=== PATIENT | female | born 1955 | race Caucasian/White ===

== ENCOUNTER 2021-05-28 17:42 | Inpatient (IN) ==
[2021-05-28 19:24] LABS: Hematocrit 36.5 VOL% (35.7-47.0); Hemoglobin 11.8 GM/DL (12.0-16.0); Immature Granulocytes % 0.4 %; Immature Granulocytes Absolute 0.04 #; Lymphocytes # 1.4 10*3/uL (1.4-4.0); Lymphocytes % 15.5 % (21.3-54.2); Mean Corpuscular HGB Conc 32.3 GM/DL (32-36); Mean Corpuscular Volume 84.5 FL (87-102); Monocytes % 7.2 % (1.7-12.7); Neutrophils % 76.9 % (38.7-73.9); Platelet Count 247 T/CUMM (130-400); Red Blood Count 4.32 MC/CUMM (3.8-5.5); Red Cell Distribution Width 14.5 % (9.3-17.3); White Blood Count 9.1 T/CUMM (4-12)
[2021-05-28 19:25] LABS: Albumin 3.5 G/DL (3.4-5.0); Bilirubin,Total 0.5 MG/DL (0.20-1.00); Calcium 8.5 MG/DL (8.5-10.1); Osmolality,Calculated 280.4 MOS/KG (273-304); Potassium 5.1 MMOL/L (3.5-5.1); Total Protein 7.1 G/DL (6.4-8.2)
[2021-05-28 19:29] LABS: Bacteria,Urine Occasional /HPF (Few); Hyaline Casts,Urine 1 /LPF (0-3); Mucus,Urine Occasional /LPF (Occasional); Squamous Epithelial Cell,Urine Occasional /HPF (0-10); Transitional Epi Cells,Urine Occasional /HPF (<1)
[2021-05-28 19:30] LABS: Bilirubin,Urine Negative (Negative); Blood, Urine Negative (Negative); Glucose,Urine (UA) 100 mg/dL (Negative); Ketones,Urine Negative (Negative); Nitrite,Urine Negative (Negative); Protein,Urine Negative (Negative); Urine Appearance Clear (Clear); Urine Color Light Yellow (Yellow); Urine Specific Gravity <= 1.005 (1.001-1.035); Urine Urobilinogen 0.2 eU/dL (<2.0); Urine pH 5.5 (4.5-8.0)
[2021-05-28] MEDS ORDERED: SODIUM CHLORIDE 0.9% 1,000 ML IV STA (19:53)
[2021-05-28] MEDS ORDERED: ONDANSETRON 4 MG/2 ML VIAL IV STA (21:39)
[2021-05-28] MEDS ORDERED: MORPHINE 2 MG/1 ML SYRINGE IV STA (21:39)
[2021-05-28] MEDS ORDERED: MAGNESIUM SULF RIDER 4 GM/100 ML PREMIX IV PRN (22:29)
[2021-05-28] MEDS ORDERED: MAGNESIUM SULF RIDER 2 GM/50 ML PREMIX IV PRN (22:29)
[2021-05-28] MEDS ORDERED: GLUCAGON 1 MG VIAL IM PRN (22:29)
[2021-05-28] MEDS ORDERED: DEXTROSE 10% 250 ML BAG IV PRN (22:46)
[2021-05-28] MEDS ORDERED: ACETAMINOPHEN 500 MG TABLET PO PRN (23:25)
[2021-05-29] MEDS: ENOXAPARIN 40 MG/0.4 ML SYRINGE SUBCUT SCH ×2 (00:20→21:46)
[2021-05-29 00:24] LABS: Barbiturates Screen,Urine Negative (Negative); Benzodiazepines Screen,Urine Negative (Negative); Cannabinoid Screen,Urine Negative (Negative); Opiate Screen,Urine Negative (Negative); Phencyclidine Screen,Urine Negative (Negative)
[2021-05-29] MEDS: SODIUM CHLORIDE 0.9% 1,000 ML IV SCH ×3 (00:30→21:44)
[2021-05-29] MEDS ORDERED: LEVOFLOXACIN INJ 500 MG/100 ML PREMIX IV ONE (01:00)
[2021-05-29 05:11] LABS: Basophils % 0.1 % (0.0-0.8); Eosinophils % 0.1 % (0.00-10.9); Hematocrit 33.7 VOL% (35.7-47.0); Hemoglobin 10.8 GM/DL (12.0-16.0); Immature Granulocytes % 0.3 %; Immature Granulocytes Absolute 0.02 #; Lymphocytes # 2.5 10*3/uL (1.4-4.0); Lymphocytes % 35.8 % (21.3-54.2); Mean Corpuscular Volume 84.7 FL (87-102); Mean Platelet Volume 10.4 FL (9.6-12.0); Monocytes % 10.1 % (1.7-12.7); Neutrophils % 53.6 % (38.7-73.9); Platelet Count 241 T/CUMM (130-400); Red Blood Count 3.98 MC/CUMM (3.8-5.5); Red Cell Distribution Width 14.5 % (9.3-17.3)
[2021-05-29 05:39] LABS: Calcium 8.4 MG/DL (8.5-10.1); Osmolality,Calculated 283.7 MOS/KG (273-304); Potassium 4.5 MMOL/L (3.5-5.1); Thyroid Stimulating Hormone 1.25 uIU/ml (0.358-3.74)
[2021-05-29] MEDS: INSULIN REGULAR 100 UNIT/ML SUBCUT SCH ×4 (07:57→22:10)
[2021-05-29] MEDS: PANTOPRAZOLE 40 MG TABLET PO SCH (09:50)
[2021-05-29] MEDS: DOCUSATE SODIUM 100 MG CAPSULE PO SCH ×2 (09:50→21:44)
[2021-05-29] MEDS: oxyCODONE/ACETAMINOPHEN 5-325 MG TABLET PO PRN ×2 (13:40→21:45)
[2021-05-29] MEDS ORDERED: LEVOFLOXACIN INJ 250 MG/50 ML PREMIX IV ONE (21:00)
[2021-05-29] MEDS: METOPROLOL TARTRATE 50 MG TABLET PO SCH (21:44)
[2021-05-29] MEDS: PREGABALIN 75 MG CAPSULE PO SCH (21:45)
[2021-05-29] MEDS: BACLOFEN 10 MG TABLET PO SCH (21:45)
[2021-05-30] MEDS: SODIUM CHLORIDE 0.9% 1,000 ML IV SCH ×6 (02:36→23:29)
[2021-05-30] MEDS: oxyCODONE/ACETAMINOPHEN 5-325 MG TABLET PO PRN ×4 (02:37→21:50)
[2021-05-30 06:08] LABS: Basophils % 0.2 % (0.0-0.8); Eosinophils % 0.2 % (0.00-10.9); Hemoglobin 11.3 GM/DL (12.0-16.0); Immature Granulocytes % 1.1 %; Immature Granulocytes Absolute 0.06 #; Lymphocytes # 1.9 10*3/uL (1.4-4.0); Lymphocytes % 32.8 % (21.3-54.2); Mean Corpuscular HGB Conc 31.4 GM/DL (32-36); Mean Corpuscular Volume 85.3 FL (87-102); Mean Platelet Volume 10.3 FL (9.6-12.0); Monocytes % 9.6 % (1.7-12.7); Neutrophils % 56.1 % (38.7-73.9); Platelet Count 227 T/CUMM (130-400); Red Blood Count 4.22 MC/CUMM (3.8-5.5); Red Cell Distribution Width 14.5 % (9.3-17.3); White Blood Count 5.7 T/CUMM (4-12)
[2021-05-30 06:30] LABS: Calcium 8.7 MG/DL (8.5-10.1); Osmolality,Calculated 276.8 MOS/KG (273-304); Potassium 4.2 MMOL/L (3.5-5.1)
[2021-05-30] MEDS: INSULIN REGULAR 100 UNIT/ML SUBCUT SCH ×4 (07:40→20:27)
[2021-05-30] MEDS ORDERED: PANTOPRAZOLE 40 MG TABLET PO SCH (09:00)
[2021-05-30] MEDS: ESCITALOPRAM 10 MG TABLET PO SCH (09:29)
[2021-05-30] MEDS: METOPROLOL TARTRATE 50 MG TABLET PO SCH ×2 (09:29→20:26)
[2021-05-30] MEDS: PANTOPRAZOLE 40 MG TABLET PO SCH (09:29)
[2021-05-30] MEDS: BACLOFEN 10 MG TABLET PO SCH ×2 (09:29→20:26)
[2021-05-30] MEDS: DOCUSATE SODIUM 100 MG CAPSULE PO SCH ×2 (09:29→20:26)
[2021-05-30] MEDS: PREGABALIN 75 MG CAPSULE PO SCH ×2 (09:29→20:26)
[2021-05-30] MEDS: ASPIRIN EC 81 MG TABLET PO SCH ×2 (12:21→12:22)
[2021-05-30] MEDS: ENOXAPARIN 40 MG/0.4 ML SYRINGE SUBCUT SCH (21:34)
[2021-05-31] MEDS: SODIUM CHLORIDE 0.9% 1,000 ML IV SCH ×4 (03:40→22:32)
[2021-05-31 09:18] LABS: Basophils % 0.1 % (0.0-0.8); Hematocrit 37.1 VOL% (35.7-47.0); Hemoglobin 12.1 GM/DL (12.0-16.0); Immature Granulocytes % 0.9 %; Immature Granulocytes Absolute 0.08 #; Lymphocytes # 1.4 10*3/uL (1.4-4.0); Lymphocytes % 14.9 % (21.3-54.2); Mean Corpuscular HGB Conc 32.6 GM/DL (32-36); Mean Corpuscular Volume 82.8 FL (87-102); Mean Platelet Volume 10.7 FL (9.6-12.0); Monocytes % 6.5 % (1.7-12.7); Neutrophils % 77.6 % (38.7-73.9); Platelet Count 253 T/CUMM (130-400); Red Blood Count 4.48 MC/CUMM (3.8-5.5); Red Cell Distribution Width 14.1 % (9.3-17.3); White Blood Count 9.3 T/CUMM (4-12)
[2021-05-31 09:45] LABS: Calcium 8.6 MG/DL (8.5-10.1); Osmolality,Calculated 267.5 MOS/KG (273-304); Potassium 3.7 MMOL/L (3.5-5.1)
[2021-05-31] MEDS: INSULIN REGULAR 100 UNIT/ML SUBCUT SCH ×4 (10:03→20:51)
[2021-05-31] MEDS: ASPIRIN EC 81 MG TABLET PO SCH (10:03)
[2021-05-31] MEDS: METOPROLOL TARTRATE 50 MG TABLET PO SCH ×2 (10:03→20:51)
[2021-05-31] MEDS: ESCITALOPRAM 10 MG TABLET PO SCH (10:04)
[2021-05-31] MEDS: PANTOPRAZOLE 40 MG TABLET PO SCH (10:04)
[2021-05-31] MEDS: DOCUSATE SODIUM 100 MG CAPSULE PO SCH ×2 (10:04→20:51)
[2021-05-31] MEDS: PREGABALIN 75 MG CAPSULE PO SCH ×2 (10:04→20:51)
[2021-05-31] MEDS: BACLOFEN 10 MG TABLET PO SCH ×2 (10:04→20:51)
[2021-05-31] MEDS ORDERED: TUBERCULIN SKIN TEST 0.1 ML SYRINGE INTRADERM ONE (15:55)
[2021-05-31] MEDS: oxyCODONE/ACETAMINOPHEN 5-325 MG TABLET PO PRN (17:19)
[2021-05-31] MEDS: SIMETHICONE CHEW 125 MG TABLET PO PRN (20:51)
[2021-05-31] MEDS: ONDANSETRON 4 MG/2 ML VIAL IV PRN (21:45)
[2021-05-31] MEDS: ENOXAPARIN 40 MG/0.4 ML SYRINGE SUBCUT SCH (22:32)
[2021-06-01 05:08] LABS: Basophils % 0.1 % (0.0-0.8); Hemoglobin 11.6 GM/DL (12.0-16.0); Immature Granulocytes % 1.1 %; Immature Granulocytes Absolute 0.09 #; Lymphocytes # 1.8 10*3/uL (1.4-4.0); Lymphocytes % 22.3 % (21.3-54.2); Mean Corpuscular HGB Conc 33.1 GM/DL (32-36); Mean Corpuscular Volume 82.4 FL (87-102); Mean Platelet Volume 10.2 FL (9.6-12.0); Monocytes % 7.4 % (1.7-12.7); Neutrophils % 69.1 % (38.7-73.9); Platelet Count 266 T/CUMM (130-400); Red Blood Count 4.25 MC/CUMM (3.8-5.5); Red Cell Distribution Width 13.9 % (9.3-17.3); White Blood Count 7.8 T/CUMM (4-12)
[2021-06-01 05:24] LABS: Calcium 8.5 MG/DL (8.5-10.1); Osmolality,Calculated 268.4 MOS/KG (273-304); Potassium 3.9 MMOL/L (3.5-5.1)
[2021-06-01] MEDS: oxyCODONE/ACETAMINOPHEN 5-325 MG TABLET PO PRN ×3 (06:32→20:46)
[2021-06-01] MEDS: METOPROLOL TARTRATE 50 MG TABLET PO SCH ×2 (08:49→20:45)
[2021-06-01] MEDS: BACLOFEN 10 MG TABLET PO SCH ×2 (08:49→20:45)
[2021-06-01] MEDS: PANTOPRAZOLE 40 MG TABLET PO SCH (08:50)
[2021-06-01] MEDS: DOCUSATE SODIUM 100 MG CAPSULE PO SCH ×2 (08:50→20:45)
[2021-06-01] MEDS: PREGABALIN 75 MG CAPSULE PO SCH ×2 (08:50→20:45)
[2021-06-01] MEDS: ASPIRIN EC 81 MG TABLET PO SCH (08:50)
[2021-06-01] MEDS: INSULIN REGULAR 100 UNIT/ML SUBCUT SCH ×4 (08:50→20:47)
[2021-06-01] MEDS: ESCITALOPRAM 10 MG TABLET PO SCH (10:21)
[2021-06-01] MEDS: ONDANSETRON 4 MG/2 ML VIAL IV PRN (14:35)
[2021-06-01] MEDS: SODIUM CHLORIDE 0.9% 1,000 ML IV SCH (14:36)
[2021-06-01] MEDS: ENOXAPARIN 40 MG/0.4 ML SYRINGE SUBCUT SCH (20:45)
[2021-06-02] MEDS: SODIUM CHLORIDE 0.9% 1,000 ML IV SCH ×2 (00:52)
[2021-06-02] MEDS: ONDANSETRON 4 MG/2 ML VIAL IV PRN ×2 (00:57→19:30)
[2021-06-02] MEDS: oxyCODONE/ACETAMINOPHEN 5-325 MG TABLET PO PRN ×3 (05:19→19:32)
[2021-06-02 05:33] LABS: Basophils % 0.1 % (0.0-0.8); Eosinophils % 0.1 % (0.00-10.9); Hematocrit 35.9 VOL% (35.7-47.0); Hemoglobin 11.8 GM/DL (12.0-16.0); Immature Granulocytes Absolute 0.07 #; Lymphocytes # 1.8 10*3/uL (1.4-4.0); Lymphocytes % 24.9 % (21.3-54.2); Mean Corpuscular HGB Conc 32.9 GM/DL (32-36); Mean Corpuscular Volume 83.3 FL (87-102); Mean Platelet Volume 10.6 FL (9.6-12.0); Monocytes % 9.3 % (1.7-12.7); Neutrophils % 64.6 % (38.7-73.9); Platelet Count 261 T/CUMM (130-400); Red Blood Count 4.31 MC/CUMM (3.8-5.5); Red Cell Distribution Width 14.3 % (9.3-17.3); White Blood Count 7.2 T/CUMM (4-12)
[2021-06-02 05:57] LABS: Calcium 8.3 MG/DL (8.5-10.1); Osmolality,Calculated 280.5 MOS/KG (273-304); Potassium 3.4 MMOL/L (3.5-5.1)
[2021-06-02] MEDS: INSULIN REGULAR 100 UNIT/ML SUBCUT SCH ×4 (08:52→21:50)
[2021-06-02] MEDS: ESCITALOPRAM 10 MG TABLET PO SCH (08:53)
[2021-06-02] MEDS: ASPIRIN EC 81 MG TABLET PO SCH (08:53)
[2021-06-02] MEDS: PREGABALIN 75 MG CAPSULE PO SCH ×2 (08:53→20:57)
[2021-06-02] MEDS: PANTOPRAZOLE 40 MG TABLET PO SCH (08:53)
[2021-06-02] MEDS: BACLOFEN 10 MG TABLET PO SCH ×2 (08:53→20:58)
[2021-06-02] MEDS: METOPROLOL TARTRATE 50 MG TABLET PO SCH ×2 (08:53→20:58)
[2021-06-02] MEDS: DOCUSATE SODIUM 100 MG CAPSULE PO SCH ×2 (08:53→20:58)
[2021-06-02] MEDS ORDERED: VALSARTAN 160 MG TABLET PO SCH (09:00)
[2021-06-02] MEDS ORDERED: POTASSIUM CHLORIDE 20 MEQ TABLET PO ONE ×2 (09:20→11:20)
[2021-06-02] MEDS: ENOXAPARIN 40 MG/0.4 ML SYRINGE SUBCUT SCH (20:58)
[2021-06-03] MEDS: ONDANSETRON 4 MG/2 ML VIAL IV PRN (01:05)
[2021-06-03] MEDS: SODIUM CHLORIDE 0.9% 1,000 ML IV SCH (02:16)
[2021-06-03] MEDS: hydrALAZINE 20 MG/1 ML VIAL IV PRN ×2 (05:31→11:53)
[2021-06-03] MEDS: oxyCODONE/ACETAMINOPHEN 5-325 MG TABLET PO PRN ×3 (05:33→19:58)
[2021-06-03 06:14] LABS: Basophils % 0.1 % (0.0-0.8); Eosinophils % 0.1 % (0.00-10.9); Hematocrit 33.5 VOL% (35.7-47.0); Hemoglobin 11.1 GM/DL (12.0-16.0); Immature Granulocytes Absolute 0.07 #; Lymphocytes # 1.9 10*3/uL (1.4-4.0); Lymphocytes % 26.8 % (21.3-54.2); Mean Corpuscular HGB Conc 33.1 GM/DL (32-36); Mean Corpuscular Volume 83.3 FL (87-102); Mean Platelet Volume 10.5 FL (9.6-12.0); Monocytes % 9.4 % (1.7-12.7); Neutrophils % 62.6 % (38.7-73.9); Platelet Count 234 T/CUMM (130-400); Red Blood Count 4.02 MC/CUMM (3.8-5.5); Red Cell Distribution Width 14.2 % (9.3-17.3); White Blood Count 6.9 T/CUMM (4-12)
[2021-06-03 06:31] LABS: Calcium 8.4 MG/DL (8.5-10.1); Osmolality,Calculated 277.7 MOS/KG (273-304); Potassium 3.7 MMOL/L (3.5-5.1)
[2021-06-03] MEDS: hydroCHLOROthiazide 25 MG TABLET PO SCH (08:50)
[2021-06-03] MEDS: VALSARTAN 160 MG TABLET PO SCH (08:50)
[2021-06-03] MEDS: BACLOFEN 10 MG TABLET PO SCH ×2 (08:51→20:27)
[2021-06-03] MEDS: METOPROLOL TARTRATE 50 MG TABLET PO SCH ×2 (08:51→20:27)
[2021-06-03] MEDS: DOCUSATE SODIUM 100 MG CAPSULE PO SCH ×2 (08:51→20:27)
[2021-06-03] MEDS: ASPIRIN EC 81 MG TABLET PO SCH (08:51)
[2021-06-03] MEDS: PREGABALIN 75 MG CAPSULE PO SCH ×2 (08:51→20:27)
[2021-06-03] MEDS: INSULIN REGULAR 100 UNIT/ML SUBCUT SCH ×4 (08:51→21:44)
[2021-06-03] MEDS: ESCITALOPRAM 10 MG TABLET PO SCH (08:51)
[2021-06-03] MEDS: PANTOPRAZOLE 40 MG TABLET PO SCH (08:52)
[2021-06-03] MEDS: LORATADINE 10 MG TABLET PO SCH (10:19)
[2021-06-03] MEDS: POTASSIUM CHLORIDE RIDER 10 MEQ/100 ML PREMIX IV PRN ×2 (11:53→14:07)
[2021-06-03] MEDS: ENOXAPARIN 40 MG/0.4 ML SYRINGE SUBCUT SCH (20:29)
[2021-06-04] MEDS: hydrALAZINE 20 MG/1 ML VIAL IV PRN (01:39)
[2021-06-04] MEDS: ONDANSETRON 4 MG/2 ML VIAL IV PRN ×2 (04:29→15:26)
[2021-06-04 05:11] LABS: Basophils % 0.1 % (0.0-0.8); Eosinophils % 0.1 % (0.00-10.9); Hemoglobin 12.3 GM/DL (12.0-16.0); Immature Granulocytes Absolute 0.08 #; Lymphocytes # 1.9 10*3/uL (1.4-4.0); Lymphocytes % 23.9 % (21.3-54.2); Mean Corpuscular HGB Conc 32.4 GM/DL (32-36); Mean Corpuscular Volume 83.5 FL (87-102); Mean Platelet Volume 10.7 FL (9.6-12.0); Monocytes % 10.2 % (1.7-12.7); Neutrophils % 64.7 % (38.7-73.9); Platelet Count 289 T/CUMM (130-400); Red Blood Count 4.55 MC/CUMM (3.8-5.5); Red Cell Distribution Width 14.6 % (9.3-17.3); White Blood Count 7.7 T/CUMM (4-12)
[2021-06-04 05:38] LABS: Calcium 9.2 MG/DL (8.5-10.1); Potassium 3.9 MMOL/L (3.5-5.1)
[2021-06-04] MEDS: oxyCODONE/ACETAMINOPHEN 5-325 MG TABLET PO PRN ×2 (06:20→13:04)
[2021-06-04] MEDS: PANTOPRAZOLE 40 MG TABLET PO SCH (09:19)
[2021-06-04] MEDS: ESCITALOPRAM 10 MG TABLET PO SCH (09:19)
[2021-06-04] MEDS: INSULIN REGULAR 100 UNIT/ML SUBCUT SCH ×2 (09:19→12:38)
[2021-06-04] MEDS: ASPIRIN EC 81 MG TABLET PO SCH (09:20)
[2021-06-04] MEDS: PREGABALIN 75 MG CAPSULE PO SCH (09:20)
[2021-06-04] MEDS: DOCUSATE SODIUM 100 MG CAPSULE PO SCH (09:20)
[2021-06-04] MEDS: BACLOFEN 10 MG TABLET PO SCH (09:20)
[2021-06-04] MEDS: hydroCHLOROthiazide 25 MG TABLET PO SCH (09:20)
[2021-06-04] MEDS: METOPROLOL TARTRATE 50 MG TABLET PO SCH (09:20)
[2021-06-04] MEDS: LORATADINE 10 MG TABLET PO SCH (09:20)
[2021-06-04] MEDS: VALSARTAN 160 MG TABLET PO SCH (09:21)
[2021-06-04] MEDS: SIMETHICONE CHEW 125 MG TABLET PO PRN (09:23)
[2021-06-04 12:36] VITALS: BP 171/55
== END 2021-06-04 18:20 | disposition home health service (06) | DRG 552 ==
LOC: EDBD → EDUNIT# → N.EDINP 17:42 → N.ED 17:42 → SUATTDRO 22:44 → N.3E 05-29 07:40 → SUATTDRO 05-29 09:44
PROVIDERS: ADMIT Internal Medicine; ATTEND Internal Medicine